=== PATIENT | female | born 1955 | race Caucasian/White ===

== ENCOUNTER 2017-08-03 17:09 | Inpatient (IN) | payer BC ==
[2017-08-03 17:51] LABS: Absolute Monocytes 0.5 K/uL (0.1-1.3); Absolute Neutrophil 24.6 K/uL (1.8-8.0); Basophils % 0.1 % (0-1.3); Eosinophils % 0.8 % (0-4.4); Hematocrit 40.4 % (36.0-45.0); Lymphocytes % 3.7 % (15.3-44.8); MCH 29.9 pg (27.0-35.0); MCV 89.9 fL (80-100); MPV 9.2 fL (7.6-11.3); Monocytes % 2.1 % (3.3-12.3)
[2017-08-03] MEDS ORDERED: MAGNE/ALUM HYDROXD 30 ML UCUP ONE (17:53)
[2017-08-03] MEDS ORDERED: ONDANSETRON 4 MG/2 ML VIAL ONE (17:53)
[2017-08-03] MEDS ORDERED: LIDOCAINE VISCOUS 2% SOLN 15 ML UDC ONE (17:54)
[2017-08-03 17:58] LABS: Protime INR 1.24
--- NOTE | 2017-08-03 18:02 | RAD REPORT ---
EXAM DESCRIPTION: US - Abdomen Exam Limited - 08/03/2017 5:46 pm CLINICAL HISTORY: Abdominal pain. COMPARISON: None. FINDINGS: The gallbladder wall is not thickened. A gallstone is not seen. The biliary tree is normal caliber. IMPRESSION: Unremarkable gallbladder ultrasound.
[2017-08-03] MEDS ORDERED: LEVALBUTEROL 1.25 MG/3 ML NEB ONE ×2 (18:05→20:36)
[2017-08-03] MEDS ORDERED: NA CHLORIDE 0.9% 500 ML ONE ×2 (18:05→18:23)
[2017-08-03 19:17] LABS: ALT/SGPT 18 U/L (12-78); AST/SGOT 18 U/L (15-37); Albumin 2.6 g/dL (3.4-5.0); Alkaline Phosphatase 141 U/L (45-117); BUN Blood Urea Nitrogen 44 mg/dL (7-18); Bicarbonate 21 mmol/L (21-32); Bilirubin Direct 0.3 mg/dL (0-0.2); Bilirubin Total 0.5 mg/dL (0.2-1.0); CKMB Creatine Kinase MB < 1.0 ng/mL (0.3-3.6); Creatine Phosphokinase 25 U/L (26-192); Glucose Level 100 mg/dL (74-106); Lipase 63 U/L (73-393); Potassium 3.1 mmol/L (3.5-5.1); Sodium Level 128 mmol/L (136-145)
[2017-08-03] MEDS ORDERED: MEPERIDINE HCL 25 MG/0.5 ML ONE (19:17)
--- NOTE | 2017-08-03 19:20 | RAD REPORT ---
EXAM DESCRIPTION: Damir Single View08/03/2017 6:26 pm CLINICAL HISTORY: Chest pain COMPARISON: none FINDINGS: Small to moderate loculated right pleural effusion is suspected with mild to moderate righ t lung opacities. The left lung probably is clear. The heart is normal size IMPRESSION: Small to moderate loculated right pleural effusion Right lung opacities probably represent pneumonia. This all should be followed until it is clear to help exclude an underlying mass
[2017-08-03] MEDS ORDERED: Levofloxacin 750mg IV 750 MG/150 ML BAG IV ONE (19:27)
--- NOTE | 2017-08-03 20:00 | EDPHYS ---
Physician Documentation [facility] Name: Leonila Cabrera Age: 62 yrs Sex: Female : 1955 Arrival Date: 08/03/2017 Time: 17:09 Bed 6 Private MD: ED Physician Perico Shah HPI: 08/03 17:19 This 62 yrs old Female presents to ER via Unassigned with complaints of Chest rn Pain. 17:19 The patient or guardian reports chest pain that is located primarily in the substernal rn area, anterior chest wall, left. Onset: 3 day(s) ago. The pain does not radiate. The chest pain is described as aching, dull. Modifying factors: The symptoms are alleviated by nothing. the symptoms are aggravated by nothing. Severity of pain: At its worst the pain was moderate in the emergency department the pain is unchanged. The patient has not experienced similar symptoms in the past. Reports began as right sided chest pain, now substernal and left sided, non-radiating, assoc with heartburn and decreased appetite, not worse or better with anything, no trauma, + cough without blood, no fever. . Historical: - Allergies: 17:33 PENICILLINS; aj - Home Meds: 17:33 Omeprazole Oral [Active]; aj - PMHx: 17:33 GERD; aj - PSHx: 17:33 None; aj - Immunization history:: Adult Immunizations up to date. - Social history:: Smoking status: Patient/guardian denies using tobacco. - Family history:: not pertinent. - Ebola Screening: : Patient negative for fever greater than or equal to 101.5 degrees Fahrenheit, and additional compatible Ebola Virus Disease symptoms Patient denies exposure to infectious person Patient denies travel to an Ebola-affected area in the 21 days before illness onset No symptoms or risks identified at this time. - Hospitalizations: : No recent hospitalization is reported. ROS: 17:19 Constitutional: Negative for fever, chills, and weight loss, Eyes: Negative for injury, rn pain, redness, and discharge, Cardiovascular: Negative for palpitations, and edema, Respiratory: Negative for shortness of breath, wheezing Abdomen/GI: Negative for abdominal pain, vomiting, diarrhea, and constipation, MS/Extremity: Negative for injury and deformity, Skin: Negative for injury, rash, and discoloration, Neuro: Negative for headache, weakness, numbness, tingling, and seizure. Exam: 17:19 Constitutional: This is a well developed, well nourished patient who is awake, alert, rn wheeled in with hand on chest, moaning Head/Face: Normocephalic, atraumatic. Eyes: Pupils equal round and reactive to light, extra-ocular motions intact. Lids and lashes normal. Conjunctiva and sclera are non-icteric and not injected. Cornea within normal limits. Periorbital areas with no swelling, redness, or edema. ENT: dry MM Neck: Trachea midline, no thyromegaly or masses palpated, and no cervical lymphadenopathy. Supple, full range of motion without nuchal rigidity, or vertebral point tenderness. No Meningismus. Chest/axilla: Normal chest wall appearance and motion. Nontender with no deformity. No lesions are appreciated. Cardiovascular: Regular rate and rhythm with a normal S1 and S2. No gallops, murmurs, or rubs. Normal PMI, no JVD. No pulse deficits. Respiratory: Lungs have equal breath sounds bilaterally, clear to auscultation and percussion. No rales, rhonchi or wheezes noted. No increased work of breathing, no retractions or nasal flaring. Abdomen/GI: Soft, non-tender, with normal bowel sounds. No distension or tympany. No guarding or rebound. No evidence of tenderness throughout. MS/ Extremity: Pulses equal, no cyanosis. Neurovascular intact. Full, normal range of motion. Equal circumference. Neuro: Awake and alert, GCS 15, oriented to person, place, time, and situation. Cranial nerves II-XII grossly intact. Motor strength 5/5 in all extremities. Sensory grossly intact. Vital Signs: 17:38 BP 128 / 85; Pulse 119; Resp 30; Temp 98.4; Pulse Ox 100% on R/A; Weight 72.57 kg; aj Height 5 ft. 4 in. (162.56 cm); 18:09 BP 97 / 68; Pulse 126; Resp 24; Pulse Ox 100% on Nebulizer Mask; aj 19:33 BP 106 / 73; Pulse 130; Resp 30; Pulse Ox 100% on 2 lpm NC; aj 20:58 BP 100 / 63; Pulse 127; Resp 27; Pulse Ox 100% on BiPAP; aj 21:16 BP 107 / 94; Pulse 125; Resp 29; Pulse Ox 100% on BiPAP; aj 17:38 Body Mass Index 27.46 (72.57 kg, 162.56 cm) aj MDM: 17:11 Patient medically screened. rn 19:56 Differential diagnosis: acute myocardial infarction, acute pericarditis, chest wall rn pain, cholecystitis, Cholelithiasis costochondritis, esophagitis, gastritis, gastroesophageal reflux disease (GERD), pericarditis, pleurisy, pneumonia, pneumothorax. Data reviewed: vital signs, nurses notes, lab test result(s), EKG, radiologic studies, plain films, and as a result, I will admit patient. Counseling: I had a detailed discussion with the patient and/or guardian regarding: the historical points, exam findings, and any diagnostic results supporting the discharge/admit diagnosis, lab results, radiology results, the need for further work-up and treatment in the hospital. Response to treatment: the patient's symptoms have mildly improved after treatment, and as a result, I will admit patient. Admission orders: after a detailed discussion of the patient's condition and case, the admit orders are written by me. ED course: Pt with pneumonia, improving but still tachypneic, placed on bipap for support, admitted to Dr. parks At 8. 08/03 17:16 Order name: Basic Metabolic Panel; Complete Time: 19:21 rn 08/03 17:16 Order name: CBC with Diff rn 08/03 17:16 Order name: Ckmb; Complete Time: 19: rn 08/03 17:16 Order name: CPK; Complete Time: : rn 08/03 17:16 Order name: LFT's; Complete Time: 19:21 rn 08/03 17:16 Order name: PT-INR; Complete Time: 18:07 rn 08/03 17:16 Order name: Ptt, Activated; Complete Time: 18: rn 08/03 17:16 Order name: Troponin (emerg Dept Use Only); Complete Time: 18:21 rn 08/03 17:16 Order name: Lipase; Complete Time: 19:21 rn 08/03 17:56 Order name: Manual Differential EDMS 08/03 19:02 Order name: Urine Dipstick--Ancillary (enter results) eb 08/03 20:42 Order name: CBC with Automated Diff EDMS 08/03 20:42 Order name: CBC with Automated Diff EDMS 08/03 20:42 Order name: Comprehensive Metabolic Panel EDMS 08/03 17:16 Order name: XRAY Chest (1 view); Complete Time: 19:21 rn 08/03 17:16 Order name: US Abdomen Limited; Complete Time: 18:07 rn 08/03 19:54 Order name: BIPAP rn 08/03 20:42 Order name: Comprehensive Metabolic Panel EDMS 08/03 20:42 Order name: Lipid Profile EDMS 08/03 20:42 Order name: Lipid Profile EDMS 08/03 20:42 Order name: Magnesium EDMS 08/03 20:42 Order name: Magnesium EDMS 08/03 20:42 Order name: Phosphorus EDMS 08/03 20:42 Order name: Phosphorus EDMS 08/03 17:16 Order name: EKG; Complete Time: 17:16 rn 08/03 17:16 Order name: Cardiac monitoring; Complete Time: 17:56 rn 08/03 17:16 Order name: EKG - Nurse/Tech; Complete Time: 17:56 rn 08/03 17:16 Order name: IV Saline Lock; Complete Time: 17:57 rn 08/03 17:16 Order name: Labs collected and sent; Complete Time: 17:57 rn 08/03 17:16 Order name: O2 Per Protocol; Complete Time: 17:57 rn 08/03 17:16 Order name: O2 Sat Monitoring; Complete Time: 17:57 rn 08/03 20:42 Order name: Heart Healthy EDMS Administered Medications: 17:56 Drug: Zofran 4 mg Route: IVP; Site: right antecubital; aj 17:56 Drug: GI Cocktail without - (Maalox Suspension 30 ml, Lidocaine Liquid 2 % 15 aj ml) Route: PO; 18:09 Drug: NS 0.9% 500 ml Route: IV; Rate: bolus; Site: right antecubital; aj 18:09 Drug: Xopenex 1.25 mg Route: Inhalation; aj 19:22 Drug: Demerol 25 mg Route: IVP; Site: right antecubital; aj 19:33 Drug: LevaQUIN 750 mg Volume: 150 ml; Route: IVPB; Infused Over: 90 mins; Site: right aj antecubital; 20:40 Drug: morphine 4 mg Route: IVP; Site: right antecubital; aj 20:41 Drug: Xopenex 1.25 mg Route: Inhalation; aj Disposition: 19:59 Critical Care:. rn Disposition: 08/03/17 19:59 Hospitalization ordered by Henry Parks for Inpatient Admission. Preliminary diagnosis are Right sided pneumonia, Pleural effusion, not elsewhere classified, Pleurisy. - Bed requested for Telemetry/MedSurg (Inpatient). - Status is Inpatient Admission. ak1 - Condition is Stable. - Problem is new. - Symptoms have improved. UTI on Admission? No Critical care time excluding procedures: 19:59 Critical care time: Bedside Care: 25 minutes, Family Intervention: 5 minutes. Total rn time: 30 minutes Signatures: Dispatcher [employer] EDBrittany Marion, RN RN Perico Gorman MD MD rn Krenek, Amber, RN RN ak1 Botello, Elizabeth eb Corrections: (The following items were deleted from the chart) 21:02 19:59 Hospitalization Ordered by Henry Parks MD for Inpatient Admission. Preliminary eb diagnosis is Right sided pneumonia; Pleural effusion, not elsewhere classified; Pleurisy. Bed requested for Telemetry/MedSurg (Inpatient). Status is Inpatient Admission. Condition is Stable. Problem is new. Symptoms have improved. UTI on Admission? No. rn 22:27 21:02 08/03/2017 19:59 Hospitalization Ordered by Henry Parks MD for Inpatient ak1 Admission. Preliminary diagnosis is Right sided pneumonia; Pleural effusion, not elsewhere classified; Pleurisy. Bed requested for Telemetry/MedSurg (Inpatient). Status is Inpatient Admission. Condition is Stable. Problem is new. Symptoms have improved. UTI on Admission? No. eb
--- NOTE | 2017-08-03 20:00 | ER ---
Nurse's Notes [facility] Name: Leonila Cabrera Age: 62 yrs Sex: Female : 1955 Arrival Date: 08/03/2017 Time: 17:09 Bed 6 Private MD: Diagnosis: Right sided pneumonia;Pleural effusion, not elsewhere classified;Pleurisy Presentation: 08/03 17:28 Presenting complaint: Patient states: Chest pain for 4 days. Seen by PCP in [facility], then drove to this ER for evaluation. Transition of care: patient was not received from another setting of care. Onset of symptoms was July 30, 2017. Risk Assessment: Do you want to hurt yourself or someone else? Patient reports no desire to harm self or others. Care prior to arrival: None. 17:28 Method Of Arrival: Ambulatory 17:28 Acuity: MAINE 3 17:28 Initial Sepsis Screen: Does the patient meet any 2 criteria? RR > 20 per min. HR > 90 aj bpm. Yes Does the patient have a suspected source of infection?. Triage Assessment: 17:33 General: Appears in no apparent distress. uncomfortable, Behavior is calm, cooperative, aj appropriate for age. Pain: Complains of pain in chest. Neuro: Level of Consciousness is awake, alert, obeys commands, Oriented to person, place, time, situation. Cardiovascular: Reports chest pain, Capillary refill < 3 seconds in bilateral fingers Patient's skin is warm and dry. Respiratory: Airway is patent Respiratory effort is even, unlabored, Respiratory pattern is regular, symmetrical. Derm: Skin is intact, is healthy with good turgor, Skin is pink, warm \T\ dry. normal. Historical: - Allergies: 17:33 PENICILLINS; aj - Home Meds: 17:33 Omeprazole Oral [Active]; aj - PMHx: 17:33 GERD; aj - PSHx: 17:33 None; aj - Immunization history:: Adult Immunizations up to date. - Social history:: Smoking status: Patient/guardian denies using tobacco. - Family history:: not pertinent. - Ebola Screening: : Patient negative for fever greater than or equal to 101.5 degrees Fahrenheit, and additional compatible Ebola Virus Disease symptoms Patient denies exposure to infectious person Patient denies travel to an Ebola-affected area in the 21 days before illness onset No symptoms or risks identified at this time. - Hospitalizations: : No recent hospitalization is reported. Screenin:58 Abuse screen: Denies threats or abuse. Denies injuries from another. Nutritional aj screening: No deficits noted. Tuberculosis screening: No symptoms or risk factors identified. Fall Risk None identified. Assessment: 18:09 Reassessment: Patient appears in no apparent distress at this time. No changes from aj previously documented assessment. Patient and/or family updated on plan of care and expected duration. Pain level reassessed. Patient is alert, oriented x 3, equal unlabored respirations, skin warm/dry/pink. is at bedside. Patient is awake and alert. Using pink hand held fan to cool herself. Reports odd sensation in back of throat. Patient educated about viscous lidocaine and it's symptoms. Respirations are even and unlabored. Patient's voice is clear and cough is strong. Vital Signs: 17:38 BP 128 / 85; Pulse 119; Resp 30; Temp 98.4; Pulse Ox 100% on R/A; Weight 72.57 kg; aj Height 5 ft. 4 in. (162.56 cm); 18:09 BP 97 / 68; Pulse 126; Resp 24; Pulse Ox 100% on Nebulizer Mask; aj 19:33 BP 106 / 73; Pulse 130; Resp 30; Pulse Ox 100% on 2 lpm NC; aj 20:58 BP 100 / 63; Pulse 127; Resp 27; Pulse Ox 100% on BiPAP; aj 21:16 BP 107 / 94; Pulse 125; Resp 29; Pulse Ox 100% on BiPAP; aj 17:38 Body Mass Index 27.46 (72.57 kg, 162.56 cm) ED Course: 17:09 Patient arrived in ED. as 17:11 Perico Shah MD is Attending Physician. rn 17:28 Brittany Mccann, ROMY is Primary Nurse. aj 17:29 EKG done, by mine technician. reviewed by Perico Shah MD. at1 17:32 Triage completed. aj 17:38 Arm band placed on left wrist. Patient placed in an exam room, on a stretcher, on aj classroom monitor, on pulse oximetry. 17:40 X-ray completed. Portable x-ray completed in exam room. Patient tolerated procedure kc2 well. 17:41 XRAY Chest (1 view) In Process Unspecified. EDMS 17:46 US Abdomen Limited In Process Unspecified. EDMS 18:00 Inserted saline lock: 18 gauge in right antecubital area, using aseptic technique. aj Blood collected. 18:40 Urine collected: clean catch specimen, clear, ijeoma colored. jp3 19:58 Henry Otoole MD is Hospitalizing Provider. rn 20:58 Patient has correct armband on for positive identification. nuclear monitoring technician on. Pulse aj ox on. NIBP on. Administered Medications: 17:56 Drug: Zofran 4 mg Route: IVP; Site: right antecubital; aj 17:56 Drug: GI Cocktail without - (Maalox Suspension 30 ml, Lidocaine Liquid 2 % 15 aj ml) Route: PO; 18:09 Drug: NS 0.9% 500 ml Route: IV; Rate: bolus; Site: right antecubital; aj 18:09 Drug: Xopenex 1.25 mg Route: Inhalation; aj 19:22 Drug: Demerol 25 mg Route: IVP; Site: right antecubital; aj 19:33 Drug: LevaQUIN 750 mg Volume: 150 ml; Route: IVPB; Infused Over: 90 mins; Site: right aj antecubital; 20:40 Drug: morphine 4 mg Route: IVP; Site: right antecubital; aj 20:41 Drug: Xopenex 1.25 mg Route: Inhalation; aj Outcome: 19:59 Decision to Hospitalize by Provider. rn 22:27 Patient left the ED. ak1 Signatures: Dispatcher [employer] EDMS Brittany Mccann, Giselle Flood RN, Roman, MD MD rn gonzales, Amanda, risk management professional EKG Tat1 Ijeoma Matta, ROMY RN ak1 Marita Sierra2 Grant Velasquez jp3 Corrections: (The following items were deleted from the chart) 19:34 17:28 Initial Sepsis Screen: Does the patient meet any 2 criteria? No. Patient's aj initial sepsis screen is negative. Does the patient have a suspected source of infection? No. Patient's initial sepsis screen is negative. aj 21:15 18:00 Inserted saline lock: 20 gauge in right antecubital area, using aseptic aj technique. Blood collected. aj
[2017-08-03] MEDS ORDERED: MORPHINE 4 MG/ML SYR ONE (20:37)
[2017-08-03] MEDS ORDERED: ACETAMINOPHEN 500 MG TAB PO PRN (20:38)
[2017-08-03] MEDS ORDERED: ALBUTEROL 2.5 MG/3 ML NEB SOL NEB SCH (21:00)
[2017-08-03] MEDS ORDERED: NA CHLORIDE 0.9% 1,000 ML IV SCH (21:00)
[2017-08-03 21:04] LABS: Blood Morphology Comment NOT SEEN (NOT SEEN); Platelet Estimate ADEQ
[2017-08-03 21:39] LABS: Urine Blood 2+ (NEG); Urine Glucose TRACE (NEG); Urine Protein 2+ (NEG); Urine Specific Gravity 1.015 (1.005-1.030); Urine pH 5.5 (5.0-7.0)
[2017-08-04] MEDS ORDERED: PIPER/TAZO/NS 3.375gm 3.375 GM/100 ML BAG IVPB SCH
[2017-08-04] MEDS ORDERED: PIPERACIL/TAZO 3.375 GM VIAL IV ONE (00:39)
[2017-08-04] MEDS: IPRATROPIUM BROM 0.5MG/2.5ML NEB SCH ×3 (01:01→14:00)
[2017-08-04] MEDS ORDERED: CEFTRIAXONE/SWI 1gm 1 GM/10 ML SYR ONE (01:56)
[2017-08-04] MEDS ORDERED: HYDROCORTISONE SUC 100 MG INJ IV ONE (01:58)
[2017-08-04] MEDS ORDERED: CEFTRIAXONE 1 GM/NS 50 ML 1 GM/50 ML BAG IV SCH (02:00)
[2017-08-04] MEDS ORDERED: AZITHROMYCIN 500 MG/250 ML BAG ONE (02:15)
[2017-08-04] MEDS ORDERED: AZITHROMYCIN IV 500 MG in NA CHLORIDE 0.9% 250 ML IVPB SCH (02:30)
[2017-08-04] MEDS ORDERED: PANTOPRAZOLE 40MG TABLET PO ONE (02:59)
[2017-08-04] MEDS: ONDANSETRON 4 MG/2 ML VIAL IV PRN ×2 (03:12→09:55)
[2017-08-04 05:42] LABS: Absolute Lymphocytes (CBC) 0.7 K/uL (0.7-4.9); Absolute Monocytes 0.6 K/uL (0.1-1.3); Absolute Neutrophil 24.3 K/uL (1.8-8.0); Basophils % 0.2 % (0-1.3); Hematocrit 36.6 % (36.0-45.0); Lymphocytes % 2.9 % (15.3-44.8); MCH 29.9 pg (27.0-35.0); MCV 90.3 fL (80-100); Monocytes % 2.4 % (3.3-12.3); RBC Red Blood Cell Count 4.05 M/uL (3.86-4.86)
[2017-08-04] MEDS ORDERED: MORPHINE 2 MG/ML SYR IV ONE (05:48)
[2017-08-04] MEDS ORDERED: MORPHINE 2 MG/ML SYR IV PRN (05:48)
[2017-08-04] MEDS ORDERED: NA CHLORIDE 0.9% 1,000 ML IV SCH ×2 (06:00→13:00)
[2017-08-04 06:42] LABS: Albumin 2.3 g/dL (3.4-5.0); Bilirubin Total 0.5 mg/dL (0.2-1.0); Magnesium 1.9 mg/dL (1.8-2.4); Phosphorus 3.8 mg/dL (2.5-4.9); Potassium 3.5 mmol/L (3.5-5.1)
--- NOTE | 2017-08-04 07:04 | P.HP ---
Certification for Inpatient Patient admitted to: Inpatient With expected LOS: >2 Midnights Patient will require the following post-hospital care: None Practitioner: I am a practitioner with admitting privileges, knowledge of patient current condition, hospital course, and medical plan of care. Services: Services provided to patient in accordance with Admission requirements found in Title 42 Section 412.3 of the Code of Federal Regulations Patient History Date of Service: 08/03/17 Reason for admission: Pneumonia History of Present Illness: Patient is a 62-year-old female came into the hospital with shortness of breath. Patient has been having exertional dyspnea which has progressed to shortness of breath at rest. She came into the hospital for further evaluation. Patient has been having fever, shakes, and chills. She has had increased amount of secretions. Patient was seen in the emergency room and her workup revealed that she had a pneumonia. Patient has a CT scan of her chest which also showed an effusion with questionable loculations. At this time will go ahead and admit patient to the hospital and start IV antibiotic therapy. Patient has been having some pain in her sternal region which will continue to monitor at this time. This is most likely related to the pneumonia. Will get a dedicated CT scan without contrast as patient renal function is elevated. Gentle hydration will also be started. Allergies Penicillins Allergy (Unknown, Verified 08/04/17 01:00) Unknown Home Medications: Esomeprazole Mag Trihydrate [Nexium] 40 mg PO DAILY 08/03/17 - Past Medical/Surgical History Has patient received pneumonia vaccine in the past: No Diabetic: No -: GERD Past Surgical History: Patient denies surgical history - Family History Father Family History: Reviewed- Non-Contributory - Social History Smoking Status: Former smoker Alcohol use: Yes CD- Drugs: No Caffeine use: Yes Place of Residence: Home Review of Systems 10-point ROS is otherwise unremarkable Physical Examination - Vital Signs Temperature: 97 F Blood Pressure: 103/71 Pulse: 111 Respirations: 24 Pulse Ox (%): 97 - Physical Exam General: Alert, In no apparent distress, Oriented x3 HEENT: Atraumatic, PERRLA, Mucous membr. moist/pink, EOMI, Sclerae nonicteric Neck: Supple, 2+ carotid pulse no bruit, No LAD, Without JVD or thyroid abnormality Respiratory: Diminished, Crackles/rales, Expiratory wheezes Cardiovascular: Regular rate/rhythm, Normal S1 S2, No murmurs Gastrointestinal: Normal bowel sounds, Soft and benign, Non-distended, No tenderness Musculoskeletal: No clubbing, No swelling, No tenderness Integumentary: No rashes Neurological: Normal gait, Normal speech, Normal strength at 5/5 x4 extr, Normal tone, Sensation intact, Cranial nerves 3-12 intact, Normal affect Lymphatics: No axilla or inguinal lymphadenopathy - Studies Laboratory Data (last 24 hrs) 08/03/17 17:23: PT 14.7 H, INR 1.24, APTT 27.6 08/03/17 17:23: WBC 26.4 H*, Hgb 13.5, Hct 40.4, Plt Count 335 08/03/17 17:23: Sodium 128 L, Potassium 3.1 L, BUN 44 H, Creatinine 3.60 H, Glucose 100, Total Bilirubin 0.5, AST 18, ALT 18, Alkaline Phosphatase 141 H, Lipase 63 L Assessment & Plan - Problems (Diagnosis) (1) Parapneumonic effusion Current Visit: Yes Status: Acute (2) Pneumonia Current Visit: Yes Status: Acute (3) Shortness of breath Current Visit: Yes Status: Acute - Plan 1. Continue with IV antibiotics 2. Sputum and blood culture 3. Repeat chest x-ray 4. Will proceed with CT scan of the chest if pneumonia 5. Pulmonary consultation 6. Continue with nebs as needed 7. O2 per protocol 8. Continue with gentle hydration 9. Repeat labs including CBC and renal function in a.m. 10. GI and DVT prophylaxis - Advance Directives Does patient have a Living Will: No Does patient have a Durable POA for Healthcare: No - Code Status/Comfort Care Code Status Assessed: Yes Code Status: Full Code Critical Care: No Time Spent Managing PTS Care (In Minutes): 50
[2017-08-04] MEDS ORDERED: MORPHINE 4 MG/ML SYR IV PRN (07:12)
[2017-08-04] MEDS ORDERED: Meropenem 500 MG in NA CHLORIDE 0.9% 100 ML IV SCH (09:00)
[2017-08-04] MEDS ORDERED: Meropenem 1,000 MG in NA CHLORIDE 0.9% 100 ML IV SCH (09:00)
[2017-08-04] MEDS ORDERED: POTASSIUM CL SA 10 MEQ TAB PO ONE (09:00)
[2017-08-04] MEDS ORDERED: ENOXAPARIN 30 MG/0.3 ML SQ SCH (09:00)
--- NOTE | 2017-08-04 10:09 | RAD REPORT ---
EXAM DESCRIPTION: CT - Thorax Wo Con - 08/04/2017 9:15 am CLINICAL HISTORY: Pleural effusion, pneumonia, abnormal chest film COMPARISON: Chest exam August 03 TECHNIQUE: Axial 5 mm thick images of the chest were obtained without IV contrast. All CT scans are performed using dose optimization technique as appropriate and may include automated exposure control or mA/KV adjustment according to patient size. FINDINGS: Interstitial markings are prominent in the left lung field accentuated by respiratory ayo on artifact. No left-sided mass or consolidation. Small left-sided pleural effusion is present. There is no pneumothorax. Large area of consolidation is present occupying most of the right lower lobe. N umerous air bronchograms are present. Large pneumonia is favored over atelectasis or mass. There is a small component of atelectasis present. Interstitial markings in the right upper lobe and right midd le lobe are accentuated by the same motion process seen on the left. No pneumothorax. Moderate-sized loculated pleural effusion is present along the anterior and lateral aspect of the [place] from base to the aortic arch level. No soft tissue mass component seen. There is a minimal compone nt of free pleural fluid in the posterior gutter on the right. All Minimal pericardial thickening or effusion seen. Heart size is normal. Small nonspecific mediastinal lymph nodes are present probably reactive. No aortic or pulmonary artery dilatation. Vascular assessm ent is significantly limited in the absence contrast. No chest wall mass or abnormal axillary lymphadenopathy. IMPRESSION: Large consolidated pneumonia filling the majority of the right lower lobe. Moderate-size loculated pleural effusion in the anterior and lateral aspect of the right hemithorax f rom based 2 aortic arch level. Minimal left pleural effusion.
--- NOTE | 2017-08-04 10:41 | EKG ---
Test Date: 2017-08-03 Test Time: 17:21:31 Logistics Analytics Manager: JI MEASUREMENT RESULTS: Intervals: Rate: 117 UT: 172 QRSD: 88 QT: 300 QTc: 418 [place]: P: 24 UT: 172 QRS: 33 T: 22 INTERPRETIVE STATEMENTS: Sinus tachycardia Otherwise normal ECG No previous ECG available for comparison Electronically Signed On 08-04-17 10:41:03 CDT by Mariano Gauthier
[2017-08-04] MEDS ORDERED: LORazepam 2 MG/ML VIAL IV ONE ×2 (10:49→13:25)
[2017-08-04] MEDS ORDERED: Pharmacy Consult 1 EA XX PRN (12:36)
--- NOTE | 2017-08-04 12:43 | P.CNS ---
Date of Consult: 08/04/17 Reason for Consult: Pneumonia with loculated pleural effusion Chief Complaint: Pneumonia History of Present Illness: Patient is 62 years of age admitted with the tongue chest pain that started on Wednesday became progressively worse described as pleuritic in nature she has fever productive cough was found to have right-sided pneumonia with loculated pleural effusion no prior medical history takes nonsteroidals [id number] no cardiac history he has never smoked Allergies Penicillins Allergy (Unknown, Verified 08/04/17 01:00) Unknown Home Medications: Esomeprazole Mag Trihydrate [Nexium] 40 mg PO DAILY 08/03/17 - Past Medical/Surgical History Diabetic: No -: GERD - Family History Father Family History: Reviewed- Non-Contributory - Social History Alcohol use: Yes CD- Drugs: No Caffeine use: Yes Place of Residence: Home Review of Systems General: Weakness Respiratory: Cough, Shortness of Breath Cardiovascular: Chest Pain Gastrointestinal: Nausea, Abdominal Pain Physical Examination Temp Pulse Resp BP Pulse Ox 97.7 F 107 H 20 97/62 100 08/04/17 08:00 08/04/17 08:00 08/04/17 08:00 08/04/17 08:00 08/04/17 08:00 General: Alert, Moderate distress HEENT: Atraumatic Neck: Supple Respiratory: Crackles/rales (Crackles on the right side diminished air entry) Cardiovascular: No edema, Regular rate/rhythm Gastrointestinal: Normal bowel sounds, Soft and benign Laboratory Data (last 24 hrs) 08/03/17 17:23: PT 14.7 H, INR 1.24, APTT 27.6 08/03/17 17:23: WBC 26.4 H*, Hgb 13.5, Hct 40.4, Plt Count 335 08/03/17 17:23: Sodium 128 L, Potassium 3.1 L, BUN 44 H, Creatinine 3.60 H, Glucose 100, Total Bilirubin 0.5, AST 18, ALT 18, Alkaline Phosphatase 141 H, Lipase 63 L - Problems (1) Parapneumonic effusion Current Visit: Yes Status: Acute Plan: Patient is 62 years of age admitted acute onset of chest pain elevated white count she has a pneumonia with right-sided loculated pleural effusion patient also has renal failure probably acute also order ultrasound of the kidneys CT scan report reviewed continue with IV fluids of surround some IV fluids renal ultrasound patient is on med [place] vancomycin recommend transfer to a tertiary care facility she will need a vats procedure with decortication monitoring of her renal function
[2017-08-04] MEDS ORDERED: VANCOMYCIN 1.25 GM in NA CHLORIDE 0.9% 250 ML IVPB SCH (13:00)
[2017-08-04] MEDS ORDERED: LEVALBUTEROL 0.63 MG/3 ML NEB NEB SCH (14:00)
[2017-08-04] MEDS ORDERED: METOPROLOL TARTRATE 5 MG/5 ML INJ IV STA ×3 (15:00→15:18)
--- NOTE | 2017-08-04 15:29 | ECHO ---
HEIGHT: 5 ft 4 in WEIGHT: 165 lb 8 oz DATE OF STUDY: 08/04/[address]: Henry Otoole MD 2-DIMENSIONAL: YES M.MODE: YES DOPPLER: YES COLOR FLOW: YES TDS: NO PORTABLE: NO DEFINITY: NO BUBBLE STUDY: NO DIAGNOSIS: PLUERAL EFFUSION CARDIAC HISTORY: CATHERIZATION: NO SURGERY: NO PROSTHETIC VALVE: NO PACEMAKER: NO MEASUREMENTS (cm) DIASTOLIC (NORMALS) SYSTOLIC (NORMALS) IVSd 0.8 (0.6-1.2) LA Diam 3.5 (1.9-4.0) LVEF 60-69% LVIDd 4.0 (3.5-5.7) LVIDs 3.0 (2.0-3.5) %FS 26% LVPWd 0.7 (0.6-1.2) Ao Diam 2.7 (2.0-3.7) 2 DIMENSIONAL ASSESSMENT: RIGHT ATRIUM: NORMAL LEFT ATRIUM: NORMAL RIGHT VENTRICLE: NORMAL LEFT VENTRICLE: NORMAL TRICUSPID VALVE: NORMAL MITRAL VALVE: NORMAL PULMONIC VALVE: NORMAL AORTIC VALVE: NORMAL PERICARDIAL EFFUSION: NONE AORTIC ROOT: NORMAL LEFT VENTRICULAR WALL MOTION: NORMAL DOPPLER/COLOR FLOW: MILD AORTIC REGURGITATION. MILD TRICUSPID REGURGITATION. NORMAL RIGHT VENTRICULAR SYSTOLIC PRESSURE. COMMENTS: NORMAL LEFT VENTRICULAR EJECTION FRACTION. NORMAL 2D ECHOCARDIOGRAM. MILD AORTIC REGURGITATION. MILD TRICUSPID REGURGITATION. TECHNOLOGIST: Gabino WHITAKER
[2017-08-04] MEDS ORDERED: ADENOSINE 6 MG/ 2ML VIAL IV ONE (16:00)
[2017-08-04] MEDS ORDERED: RSI MEDICATION KIT IV ONE (16:01)
[2017-08-04] MEDS ORDERED: AMIODARONE HCL 150 MG in D5W 100 ML IV STA ×2 (16:07→16:13)
[2017-08-04] MEDS ORDERED: HALOPERIDOL LACT 5 MG/ML INJ IV PRN (16:17)
[2017-08-04] MEDS ORDERED: MIDAZOLAM HCL 2 MG/2 ML INJ IV PRN (16:17)
[2017-08-04] MEDS ORDERED: LORazepam 2 MG/ML VIAL IV PRN (16:17)
[2017-08-04] MEDS ORDERED: FENTANYL CITR 100 MCG/2 ML IV PRN (16:17)
[2017-08-04] MEDS ORDERED: PROPOFOL 1,000 MG/100 ML VIAL IV PRN (16:17)
[2017-08-04] MEDS ORDERED: MIDAZOLAM HCL 2 MG/2 ML INJ ONE (16:24)
--- NOTE | 2017-08-04 16:31 | RAD REPORT ---
EXAM DESCRIPTION: [place] Single View08/04/2017 4:25 pm CLINICAL HISTORY: Chest pain COMPARISON: August 04 FINDINGS: An endotracheal tube has been inserted with its tip just above the ladarius. No significant change has occurred in the right lower lobe consolidation and loculated right pleural effusion. IMPRESSION: Endotracheal tube with its tip just above the ladarius
[2017-08-04] MEDS ORDERED: FENTANYL CITR 100 MCG/2 ML ONE (16:35)
[2017-08-04 16:55] LABS: Arterial Blood Carboxyhemoglob 0.7 % (0-1.5); Blood Gas Oxyhemoglobin 97.6 % (94-97); Blood O2 Saturation 99.3 % (92-98.5)
[2017-08-04] MEDS ORDERED: AMIODARONE HCL 450 MG in D5W 241 ML IV SCH (17:00)
[2017-08-04] MEDS ORDERED: NOREPINEPHRINE 4 MG in D5W 250 ML IV PRN (17:00)
--- NOTE | 2017-08-04 17:17 | RAD REPORT ---
EXAM DESCRIPTION: RAD - Chest Single View - 08/04/2017 5:10 pm CLINICAL HISTORY: Device placement central venous line placement COMPARISON: August 04 2017 chest x-ray FINDINGS: Since a film earlier on the same date a central venous line has been inserted with its tip in the superior vena cava. A pneumothorax is not seen. No other change is noted IMPRESSION: A central venous line has its tip in distal superior vena cava. A pneumothorax is not p resent.
[2017-08-04 17:22] LABS: Absolute Lymphocytes (CBC) 0.6 K/uL (0.7-4.9); Absolute Monocytes 0.8 K/uL (0.1-1.3); Absolute Neutrophil 20.7 K/uL (1.8-8.0); Basophils % 0.1 % (0-1.3); Eosinophils % 1.2 % (0-4.4); Hematocrit 35.2 % (36.0-45.0); Lymphocytes % 2.8 % (15.3-44.8); MCH 29.5 pg (27.0-35.0); MCV 89.9 fL (80-100); MPV 8.7 fL (7.6-11.3); Monocytes % 3.7 % (3.3-12.3); RBC Red Blood Cell Count 3.92 M/uL (3.86-4.86)
[2017-08-04 17:43] LABS: Bilirubin Total 0.5 mg/dL (0.2-1.0); Potassium 3.5 mmol/L (3.5-5.1); Protein, Total 6.7 g/dL (6.4-8.2)
[2017-08-04 17:51] LABS: Blood Morphology Comment NOT SEEN (NOT SEEN); Platelet Estimate ADEQ
--- NOTE | 2017-08-04 19:17 | CON ---
History Of Present Illness: Ms. Cabrera came to the hospital with pneumonia and has gone into AFib. I am asked to see her at the same time she went into atrial fibrillation. Heart rate went up into t he 180s, blood pressure fell and she became confused, disoriented. The patient is not able to give a history right now. She has been treated with azithromycin and Rocephin and Merrem and vancomycin fo r her pneumonia, but seems to have gotten worse. Nonetheless, we do not have any history of atrial f ib or heart procedures before. The patient ate about 3 hours ago, so she is not considered n.p.o. at this time. Physical Examination: General: She is awake. She is very confused, a little bit combative. Vital signs: Her O2 sats 97%. A blood gas could be obtained. The patient is combative. Skin: She has a blue appearance to her skin. I do not think she is perfusing very well. Blood pres sures have been low. When she was in sinus rhythm was 112/89. Most recent blood pressure is in the 90s. I think, the patient is in a lot of hemodynamic and respiratory distress at the present time. She ne eds to be intubated and cardioverted quickly. We do not have informed consent for that. In fact, we have words that the patient did not want to be intubated no matter what. We will try to get a hold of her family. She is clearly not able to make medical decisions now she is just too confused. CLARY/ABE Voice ID: [id number] Report ID: [id number]
--- NOTE | 2017-08-04 20:23 | OP ---
Surgeon: Mariano Gauthier MD Procedure: Direct current cardioversion. Indication: Atrial fib, hypotension, and shock. Procedure In Detail: The patient had been intubated, so her airway is protected. She had been sedat ed with etomidate, propofol, and was paralyzed with succinylcholine. Anterior-posterior paddles were applied to her chest. A single shock, 200 joules synchronized to the QRS complex, resulted in sinus rhythm. She will be given an amiodarone bolus and when we can get a central or PICC line, then we w ill give her an amiodarone drip. Ultimately, the plan is to transfer her to a tertiary level care [facility] where a thoracic surgeon could be involved and help with treating this very large right-sided lo culated pleural effusion and very large pneumonia along with compromise of her respiratory and cardio vascular system requiring intubation and cardioversion. CLARY/ABE Voice ID: [id number] Report ID: [id number]
[2017-08-04] MEDS ORDERED: CEFTRIAXONE/SWI 1gm 1 GM/10 ML SYR IV SCH (21:00)
[2017-08-04] MEDS ORDERED: FAMOTIDINE 20 MG/2 ML VIAL IV SCH (21:00)
--- NOTE | 2017-08-04 21:08 | CON ---
Date of Consultation: 08/04/2017 Please note, this is a stat consultation and procedure note. Reason For Consultation: The patient needs a stat central line. History Of Present Illness: The patient is a 62-year-old female, who came with shortness of breath, was diagnosed with pneumonia, and was on the floor; however, she went into AFib with rapid ventricula r response, was transferred to the ICU, intubated, and has been somewhat stabilized, and she needs to be on amiodarone for her AFib, and she needs a central IV access. Therefore, I was consulted. She is intubated and unable to give any review of system at this time. Past Medical History: GERD. Past Surgical History: Denies. Allergies: PENICILLIN. Social History: Used to smoke, does not anymore. Occasionally drinks. Family History: Noncontributory. Physical Examination: General: She is hypotensive, but she is not tachycardic in sinus rhythm currently, afebrile. She is intubated. Head and Neck: No masses. Chest: Diminished breath sounds on the right side. Heart: S1, S2. Abdomen: Soft. Extremities: Neurovascularly intact. Neuro: Nonfocal. At this point, she is sedated, however. Assessment: Atrial fibrillation with rapid ventricular response. The patient needed dalton gent IV access. Plan: We will place a central line. Family understands risks, benefits, and alternatives and agrees to procedure. Procedure Note: The patient was prepped and draped in usual sterile fashion. Lidocaine 1% was infil trated locally. An 18-gauge needle was used to access the right subclavian vein. Guidewire was pass ed and then tract dilated. Triple-lumen catheter placed to 17 cm, secured with 3-0 silk, flushed wit h heparin, and packed with heparin with good blood flow. Sterile dressing applied after the 3-0 silk was used to secure the tube to the chest wall. The patient tolerated the procedure in stable condit ion. Chest x-ray has been ordered. /MODL Voice ID: [id number] Report ID: [id number]
[2017-08-05] MEDS ORDERED: PANTOPRAZOLE 40MG TABLET PO SCH (06:30)
--- NOTE | 2017-08-05 06:38 | EKG ---
Test Date: 2017-08-04 Test Time: 15:08:05 Quotation Clerk: TC/V MEASUREMENT RESULTS: Intervals: Rate: 192 HI: QRSD: 88 QT: 240 QTc: 429 [place]: P: HI: QRS: 31 T: -50 INTERPRETIVE STATEMENTS: Atrial fibrillation with rapid ventricular response Nonspecific ST and T wave abnormality, probably digitalis effect Abnormal ECG Compared to ECG 08/03/2017 17:21:31 ST (T wave) deviation now present Sinus tachycardia no longer present Electronically Signed On 08-05-17 06:37:31 CDT by Mariano Gauthier
--- NOTE | 2017-08-05 10:50 | EKG ---
Test Date: 2017-08-04 Test Time: 18:13:26 Pluck Separator: DREW MEASUREMENT RESULTS: Intervals: Rate: 94 FL: 162 QRSD: 96 QT: 374 QTc: 467 [place]: P: 0 FL: 162 QRS: 54 T: 42 INTERPRETIVE STATEMENTS: Normal sinus rhythm Normal ECG Compared to ECG 08/04/2017 15:08:05 Atrial fibrillation no longer present ST (T wave) deviation no longer present Electronically Signed On 08-05-17 10:49:34 CDT by Forrest Uriostegui
--- NOTE | 2017-08-05 13:56 | P.SSS ---
Patient History Date of Service: 08/05/17 Reason for admission: Pneumonia History of Present Illness: Patient is a 62-year-old female came into the hospital with shortness of breath. Patient has been having exertional dyspnea which has progressed to shortness of breath at rest. She came into the hospital for further evaluation. Patient has been having fever, shakes, and chills. She has had increased amount of secretions. Patient was seen in the emergency room and her workup revealed that she had a pneumonia. Patient has a CT scan of her chest which also showed an effusion with questionable loculations. At this time will go ahead and admit patient to the hospital and start IV antibiotic therapy. Patient has been having some pain in her sternal region which will continue to monitor at this time. This is most likely related to the pneumonia. Will get a dedicated CT scan without contrast as patient renal function is elevated. Gentle hydration will also be started. Allergies Penicillins Allergy (Unknown, Verified 08/04/17 01:00) Unknown Home Medications: Esomeprazole Mag Trihydrate [Nexium] 40 mg PO DAILY 08/03/17 - Past Medical/Surgical History Has patient received pneumonia vaccine in the past: No Diabetic: No -: GERD - Social History Smoking Status: Former smoker Alcohol use: Yes CD- Drugs: No Caffeine use: Yes Place of Residence: Home Review of Systems General: As per HPI Physical Examination - Vital Signs Temperature: 96.6 F Blood Pressure: 81/51 Pulse: 94 Respirations: 18 Pulse Ox (%): 92 - Physical Exam General: Acute distress, Other (Intubated and sedated) HEENT: Atraumatic Neck: Supple Respiratory: Diminished (on the right side), Crackles/rales, Rhonchi/gurgles Cardiovascular: Normal S1 S2, Irregular heart rate/rhythm Gastrointestinal: Normal bowel sounds, Hypoactive, Soft and benign, Non- distended Musculoskeletal: No clubbing, Swelling Neurological: Abnormal strength - Diagnosis (Problem(s)) (1) Respiratory failure Status: Acute Plan: Respiratory Failure due to unstable Afib with RVR -Pt intubated and sedated at this time -Pulmonology consulted. Appreciate Reccs -Pt is accepted to [facility] -Transfer when bed is available -Vent protocol Qualifiers: Chronicity: acute Respiratory failure complication: unspecified whether with hypoxia or hypercapnia Qualified Code(s): J96.00 - Acute respiratory failure, unspecified whether with hypoxia or hypercapnia (2) Atrial fibrillation with RVR Status: Acute Plan: Afib with RVR -Lopressor X 2 given. With HR is still 160-180 -Pt cardioverted at bedside. Now with HR 100 and Afib. -Started on Anticoagulation and amiodrone ggt -Transfer to [facility] for further care (3) Parapneumonic effusion Onset Date: 08/04/17 Status: Acute Plan: Multiple Loculated PE on the right -Pt will need VATS with Dicortication -Accepted to [facility] with Dr Johnston -Tranfer when bed is avaible (4) Pneumonia Onset Date: 08/04/17 Status: Acute Plan: Right sided large Consolidation noted. -IV vanc and meropenum. Treatment Summary: After the admission. pt was doing well overall. However during rounds patient was confused and appeared anxious. Was tachycardic however saturating well at 97 % on 2LNC. Pulmonology was consutled who reccs tranfer to [facility] for VATS and dicortication of her Pleural Effusion. Pt was accepted to [facility] with Bed pending. However pt developed respiratory distress and afib with rvr with hypotension. pt was tranfered to ICU and was given Lopressor x 1 with no change in rate or rhythm. Cardiology was consulted and pt was intuvated for respiratory distress and shock. Pt was then cardioverted to rate of 100 to 110. Still in afib. Was started on Amiodorne ggt here. [facility] was notifed and pt was accepted at MICU with Dr Johnston consulted for VATS. Pt was then transferred to the [facility] under stable condition. - Disposition Condition: GOOD Patient Discharge Instructions: You are being Transfered to [facility] for VATS procedure Diet: Regular Activity: Ad tj
== END 2017-08-04 18:40 | disposition short-term general hospital (02) | DRG 208 ==
LOC: ER 17:09 → ERHOLD 20:40 → 4TH 21:39 → 3RD-ICU 08-04 15:33
PROVIDERS: ADMIT Hospitalist; ATTEND Family Medicine
PROC: 02HV33Z Insertion of Infusion Device into Superior Vena Cava, Percutaneous Approach (ICD-10-PCS; principal; 2017-08-04)
PROC: 5A1935Z Respiratory Ventilation, Less than 24 Consecutive Hours (ICD-10-PCS; 2017-08-04)
PROC: 0BH17EZ Insertion of Endotracheal Airway into Trachea, Via Natural or Artificial Opening (ICD-10-PCS; 2017-08-04)
PROC: 5A2204Z Restoration of Cardiac Rhythm, Single (ICD-10-PCS; 2017-08-04)
DX: J18.9 Pneumonia, unspecified organism (principal); J96.00 Acute respiratory failure, unspecified whether with hypoxia or hypercapnia; N17.9 Acute kidney failure, unspecified; J91.8 Pleural effusion in other conditions classified elsewhere; R57.9 Shock, unspecified; I48.91 Unspecified atrial fibrillation; K21.9 Gastro-esophageal reflux disease without esophagitis; Z88.0 Allergy status to penicillin; Z87.891 Personal history of nicotine dependence
CPT/HCPCS: 36415; 71045; 71250; 76705; 80048; 80053; 80061; 80076; 81003; 82550; 82553; 82805; 83605; 83690; 83735; 83880; 84100; 84484; 85025; 85610; 85730; 87040; 93005; 93306; 94002; 94640; 94660; 94760; 96374; 96375; 99285; J0153; J0282; J0456; J0696; J1650; J1720; J2175; J2250; J2270; J2405; J2543; J3010; J7030; J7060

== ENCOUNTER 2017-09-13 14:02 | Observation (INO) | payer BC ==
--- NOTE | 2017-09-13 16:12 | RAD REPORT ---
EXAM DESCRIPTION: RAD - Hand Right 3 View - 09/13/2017 3:22 pm CLINICAL HISTORY: Nontraumatic soft tissue swelling, pain COMPARISON: None. FINDINGS: No gross fracture deformity seen. On the lateral view punctate soft tissue calcification e vident along the dorsal margin of the carpal-metacarpal articulation. No correlate on the AP or obliq ue projection. Soft tissues are swollen over the dorsum of the hand. No foreign body seen. There is n o dislocation or periosteal reaction noted. IP joint degenerative change without spurring or erosive component. IMPRESSION: Dorsal soft tissue swelling without air or foreign body. Faint calcific density along the dorsum of the carpal -metacarpal articulation. This is probably dege nerative in etiology. Patient stated no trauma.
[2017-09-13] MEDS ORDERED: KETOROLAC 30 MG/ML INJ ONE (16:47)
[2017-09-13] MEDS ORDERED: FENTANYL CITR 100 MCG/2 ML ONE (16:47)
[2017-09-13] MEDS ORDERED: ONDANSETRON 4 MG/2 ML VIAL ONE (16:48)
[2017-09-13] MEDS ORDERED: NA CHLORIDE 0.9% 1,000 ML ONE (16:48)
[2017-09-13 17:25] LABS: Absolute Lymphocytes (CBC) 3.2 K/uL (0.7-4.9); Absolute Monocytes 0.8 K/uL (0.1-1.3); Absolute Neutrophil 8.4 K/uL (1.8-8.0); Basophils % 0.9 % (0-1.3); Eosinophils % 1.8 % (0-4.4); Hematocrit 39.7 % (36.0-45.0); Lymphocytes % 24.9 % (15.3-44.8); MCH 30.5 pg (27.0-35.0); MPV 8.9 fL (7.6-11.3); Monocytes % 6.4 % (3.3-12.3); RBC Red Blood Cell Count 4.31 M/uL (3.86-4.86)
[2017-09-13 17:42] LABS: Albumin 3.5 g/dL (3.4-5.0); Bilirubin Total 0.4 mg/dL (0.2-1.0); Potassium 3.9 mmol/L (3.5-5.1); Protein, Total 8.4 g/dL (6.4-8.2)
[2017-09-13 17:53] LABS: Urine Blood TRACE (NEG); Urine Glucose NEGATIVE (NEG); Urine Protein NEGATIVE (NEG); Urine Specific Gravity 1.015 (1.005-1.030)
--- NOTE | 2017-09-13 18:17 | ER ---
Nurse's Notes [facility] Name: Leonila Cabrera Age: 62 yrs Sex: Female : 1955 Arrival Date: 09/13/2017 Time: 14:[address] Private MD: Rm Sweet Diagnosis: Pain in right wrist;Pain in right hand;Cellulitis and acute lymphangitis of other parts of limb Presentation: 09/13 14:09 Presenting complaint: Patient states: i noticed my R hand started swelling for 3 days hj now and is hurting very bad today; denies fever and chills; denies trauma to the area;. Transition of care: patient was not received from another setting of care. Onset of symptoms was September 13, 2017. Risk Assessment: Do you want to hurt yourself or someone else? Patient reports no desire to harm self or others. Initial Sepsis Screen: Does the patient meet any 2 criteria? No. Patient's initial sepsis screen is negative. Does the patient have a suspected source of infection? No. Patient's initial sepsis screen is negative. Care prior to arrival: None. 14:09 Method Of Arrival: Ambulatory 14:09 Acuity: MAINE 3 hj Triage Assessment: 14:13 General: Appears in no apparent distress. uncomfortable, Behavior is calm, cooperative, hj appropriate for age. Pain: Complains of pain in right hand. Historical: - Allergies: 14:13 PENICILLINS; hj - Home Meds: 14:13 Eliquis oral oral [Active]; pantoprazole oral oral [Active]; Metoprolol Tartrate Oral hj [Active]; - PMHx: 14:13 GERD; hj - PSHx: 14:13 None; hj - Immunization history:: Adult Immunizations up to date. - Social history:: Smoking status: Patient uses tobacco products. - Ebola Screening: : Patient negative for fever greater than or equal to 101.5 degrees Fahrenheit, and additional compatible Ebola Virus Disease symptoms Patient denies exposure to infectious person Patient denies travel to an Ebola-affected area in the 21 days before illness onset. - Family history:: not pertinent. Screenin:13 Abuse screen: Denies threats or abuse. Denies injuries from another. Nutritional hj screening: No deficits noted. Tuberculosis screening: No symptoms or risk factors identified. Fall Risk None identified. Assessment: 16:50 Reassessment: Shirley RN at bedside attempting IV start, missed attempt, Annita RN sg Charge notified to attempt IV start. 19:00 Reassessment: RECD REPORT FROM PRINCE STANTON. PT CURRENTLY IN MRI. 62YO WF P/W R HAND PAIN, TO bp BE ADMITTED AFTER RAD RESULTS. 19:20 Reassessment: PT RETURNED FROM RADIOLOGY, ADMIT IN PROCESS. bp 19:57 Reassessment: ADMIT ON HOLD PER PT REQUEST, WISHING TO SPEAK WITH MD. bp 21:17 Reassessment: PT EDUCATED ON REASON FOR ADMIT. PT TONJA WITH PCT. bp Vital Signs: 14:14 BP 120 / 79; Pulse 65; Resp 18; Temp 97.5(O); Pulse Ox 97% on R/A; Weight 68.49 kg; hj Height 5 ft. 4 in. (162.56 cm); Pain 10/10; 19:40 BP 104 / 61; Pulse 72; Resp 16; Pulse Ox 100% ; bp 20:18 BP 108 / 73; Pulse 64; Resp 16; Pulse Ox 95% on R/A; mt 20:34 BP 117 / 65; Pulse 66; Resp 18; Pulse Ox 96% on R/A; tl2 21:15 BP 107 / 76; Pulse 67; Resp 14; Pulse Ox 98% ; bp 14:14 Body Mass Index 25.92 (68.49 kg, 162.56 cm) hj ED Course: 14:04 Patient arrived in ED. rg4 14:04 Rm Sweet MD is Private Physician. rg4 14:13 Triage completed. hj 14:14 Arm band placed on left wrist. hj 14:14 Patient has correct armband on for positive identification. Placed in gown. Bed in low hj position. Call light in reach. Side rails up X2. 14:54 Issac Quesada MD is Attending Physician. oswaldo 15:23 XRAY Hand RIGHT 3 View In Process Unspecified. EDMS 16:26 Peace Dillard, RN is Primary Nurse. dm5 16:46 Primary Nurse role handed off by Peace Dillard, RN sg 16:46 Lewis Juarez, ROMY is Primary Nurse. sg 16:55 Missed attempt(s): 20 gauge in left antecubital area. Bleeding controlled, band aid dm5 applied, catheter tip intact. 17:12 Inserted saline lock: 20 gauge in left antecubital area, using aseptic technique. Blood iw collected. 17:12 Initial lab(s) drawn, by me, sent to lab. First set of blood cultures drawn by me. iw 18:13 Rm Sweet MD is Hospitalizing Provider. oswaldo 18:37 Patient moved to [facility] via wheelchair. ka 19:09 MRI completed. Patient tolerated well. Patient moved back from [facility]. ka 19:12 Primary Nurse role handed off by Lewis Juarez RN bp 19:12 Duncan Gooden, ROMY is Primary Nurse. bp 21:16 No provider procedures requiring assistance completed. Patient admitted, IV remains in bp place. Administered Medications: 18:34 Drug: TORadol 30 mg Route: IVP; Site: left antecubital; iw 19:31 Follow up: Response: No adverse reaction bp 18:35 Drug: NS 0.9% 500 ml Route: IV; Rate: bolus; Site: left antecubital; iw 21:18 Follow up: IV Status: Completed infusion; IV Intake: 500ml bp 18:35 Not Given (Patient Refused): fentaNYL (PF) 25 mcg IVP once iw 18:35 Not Given (Patient Refused): fentaNYL (PF) 25 mcg IVP once iw 18:35 Not Given (Patient Refused): Zofran 4 mg IVP once; over 2 minutes iw 19:39 Drug: Cefepime 1 grams Route: IVPB; Rate: 200 ml/hr; Infused Over: 30 mins; Site: left bp antecubital; 21:18 Follow up: IV Status: Completed infusion; IV Intake: 100ml bp Intake: 21:18 IV: 100ml; Total: 100ml. bp 21:18 IV: 500ml; Total: 600ml. bp Outcome: 18:16 Decision to Hospitalize by Provider. oswaldo 21:16 Admitted to Tele accompanied by tech, family with patient, via wheelchair, room 416, bp with chart, Report called to SARIKA STANTON 21:16 Condition: stable 21:16 Instructed on the need for admit. 21:19 Patient left the ED. bp Signatures: Dispatcher [employer] Peace Haskins RN RN dm5 Lewis Juarez, Issac Casey RN, MD MD cha Williams, Irene, RN RN iw Joaquin, Henry, RN RN Leticia Oneill Taylor, RN RN tl2 Lauren Vilchis rg4 Lele Cardosoah Duncan Escobar RN RN bp Corrections: (The following items were deleted from the chart) 14:15 14:13 Home Meds: Omeprazole Oral; [facility] 14:17 14:14 68.49 kg; Height 5 ft. 4 in.; BMI: 25.9; Pain 11/24; [facility] 16:31 14:09 Acuity: MAINE 4 [facility] 21:17 21:16 Admitted to Tele accompanied by tech, family with patient, via wheelchair, room bp 416, with chart, bp
--- NOTE | 2017-09-13 18:17 | EDPHYS ---
Physician Documentation [facility] Name: Leonila Cabrera Age: 62 yrs Sex: Female : 1955 Arrival Date: 09/13/2017 Time: 14:[address] Private MD: Rm Sweet ED Physician Issac Quesada HPI: 09/13 16:16 This 62 yrs old Female presents to ER via Ambulatory with complaints of Hand oswaldo Pain. 16:16 The patient or guardian reports decreased range of motion, pain, swelling, tenderness. oswaldo The complaints affect the right hand diffusely. Context: The problem was sustained at an unknown location. Onset: The symptoms/episode began/occurred 3 day(s) ago. Modifying factors: The symptoms are alleviated by holding still, the symptoms are aggravated by movement, dependent position. Associated signs and symptoms: The patient has no apparent associated signs or symptoms. Severity of symptoms: At their worst the symptoms were severe, in the emergency department the symptoms are unchanged. The patient has not experienced similar symptoms in the past. Historical: - Allergies: 14:13 PENICILLINS; hj - Home Meds: 14:13 Eliquis oral oral [Active]; pantoprazole oral oral [Active]; Metoprolol Tartrate Oral hj [Active]; - PMHx: 14:13 GERD; hj - PSHx: 14:13 None; hj - Immunization history:: Adult Immunizations up to date. - Social history:: Smoking status: Patient uses tobacco products. - Ebola Screening: : Patient negative for fever greater than or equal to 101.5 degrees Fahrenheit, and additional compatible Ebola Virus Disease symptoms Patient denies exposure to infectious person Patient denies travel to an Ebola-affected area in the 21 days before illness onset. - Family history:: not pertinent. ROS: 16:16 Constitutional: Negative for fever, chills, and weight loss, Eyes: Negative for injury, oswaldo pain, redness, and discharge, ENT: Negative for injury, pain, and discharge, Neck: Negative for injury, pain, and swelling, Cardiovascular: Negative for chest pain, palpitations, and edema, Respiratory: Negative for shortness of breath, cough, wheezing, and pleuritic chest pain, Abdomen/GI: Negative for abdominal pain, nausea, vomiting, diarrhea, and constipation, Back: Negative for injury and pain, : Negative for injury, bleeding, discharge, and swelling, Skin: Negative for injury, rash, and discoloration, Neuro: Negative for headache, weakness, numbness, tingling, and seizure, Psych: Negative for depression, anxiety, suicide ideation, homicidal ideation, and hallucinations, Allergy/Immunology: Negative for hives, rash, and allergies, Endocrine: Negative for neck swelling, polydipsia, polyuria, polyphagia, and marked weight changes, Hematologic/Lymphatic: Negative for swollen nodes, abnormal bleeding, and unusual bruising. 16:16 MS/extremity: Positive for decreased range of motion, pain, swelling, tenderness, of the dorsum of right hand and dorsal aspect of right wrist. Exam: 16:16 Constitutional: This is a well developed, well nourished patient who is awake, alert, oswaldo and in no acute distress. Head/Face: Normocephalic, atraumatic. Eyes: Pupils equal round and reactive to light, extra-ocular motions intact. Lids and lashes normal. Conjunctiva and sclera are non-icteric and not injected. Cornea within normal limits. Periorbital areas with no swelling, redness, or edema. ENT: Nares patent. No nasal discharge, no septal abnormalities noted. Tympanic membranes are normal and external auditory canals are clear. Oropharynx with no redness, swelling, or masses, exudates, or evidence of obstruction, uvula midline. Mucous membranes moist. Neck: Trachea midline, no thyromegaly or masses palpated, and no cervical lymphadenopathy. Supple, full range of motion without nuchal rigidity, or vertebral point tenderness. No Meningismus. Chest/axilla: Normal chest wall appearance and motion. Nontender with no deformity. No lesions are appreciated. Cardiovascular: Regular rate and rhythm with a normal S1 and S2. No gallops, murmurs, or rubs. Normal PMI, no JVD. No pulse deficits. Respiratory: Lungs have equal breath sounds bilaterally, clear to auscultation and percussion. No rales, rhonchi or wheezes noted. No increased work of breathing, no retractions or nasal flaring. Abdomen/GI: Soft, non-tender, with normal bowel sounds. No distension or tympany. No guarding or rebound. No evidence of tenderness throughout. Back: No spinal tenderness. No costovertebral tenderness. Full range of motion. Female : Normal external genitalia. Skin: Warm, dry with normal turgor. Normal color with no rashes, no lesions, and no evidence of cellulitis. Neuro: Awake and alert, GCS 15, oriented to person, place, time, and situation. Cranial nerves II-XII grossly intact. Motor strength 5/5 in all extremities. Sensory grossly intact. Cerebellar exam normal. Normal gait. Psych: Awake, alert, with orientation to person, place and time. Behavior, mood, and affect are within normal limits. 16:16 Musculoskeletal/extremity: ROM: limited active range of motion due to pain, limited passive range of motion due to pain, Circulation is intact in all extremities. Compartment Syndrome exam of affected extremity: is normal. no palor, no weak pulses, severe pain, sensation decreased. Vital Signs: 14:14 BP 120 / 79; Pulse 65; Resp 18; Temp 97.5(O); Pulse Ox 97% on R/A; Weight 68.49 kg; hj Height 5 ft. 4 in. (162.56 cm); Pain 10/10; 19:40 BP 104 / 61; Pulse 72; Resp 16; Pulse Ox 100% ; bp 20:18 BP 108 / 73; Pulse 64; Resp 16; Pulse Ox 95% on R/A; mt 20:34 BP 117 / 65; Pulse 66; Resp 18; Pulse Ox 96% on R/A; tl2 21:15 BP 107 / 76; Pulse 67; Resp 14; Pulse Ox 98% ; bp 14:14 Body Mass Index 25.92 (68.49 kg, 162.56 cm) MDM: 14:54 Patient medically screened. [facility] 16:18 Data reviewed: vital signs, EMS record, lab test result(s), radiologic studies, plain oswaldo films. 09/13 16:15 Order name: CBC with Diff [facility] 09/13 16:15 Order name: Comprehensive Metabolic Panel [facility] 09/13 16:15 Order name: Sed Rate [facility] 09/13 16:15 Order name: Blood Culture Adult (2) [facility] 09/13 16:15 Order name: Procalcitonin; Complete Time: 19:35 [facility] 09/13 16:16 Order name: CBC with Automated Diff; Complete Time: 17:46 [facility] 09/13 16:16 Order name: Comprehensive Metabolic Panel; Complete Time: 17:46 [facility] 09/13 16:16 Order name: Sedimentation Rate, Westergren; Complete Time: 17:46 [facility] 09/13 16:16 Order name: Blood Culture [facility] 09/13 16:26 Order name: Uric Acid; Complete Time: 18:08 bd 09/13 17:47 Order name: Urine Dipstick--Ancillary (enter results); Complete Time: 18:08 bd 09/13 18:24 Order name: Basic Metabolic Panel [facility] 09/13 18:24 Order name: Basic Metabolic Panel [facility] 09/13 18:24 Order name: CBC with Automated Diff [facility] 09/13 14:15 Order name: XRAY Hand RIGHT 3 View; Complete Time: 17:00 hj 09/13 18:13 Order name: Hand Right Wo Cont EDMS 09/13 18:13 Order name: Splint - Wrist; Complete Time: 19:30 oswaldo 09/13 18:24 Order name: CONS Pharmacy Consult EDMS 09/13 18:24 Order name: CONS Physician Consult [facility] 09/13 18:24 Order name: NPO [facility] 09/13 18:24 Order name: CBC with Automated Diff EDMS Administered Medications: 18:34 Drug: TORadol 30 mg Route: IVP; Site: left antecubital; iw 19:31 Follow up: Response: No adverse reaction bp 18:35 Drug: NS 0.9% 500 ml Route: IV; Rate: bolus; Site: left antecubital; iw 21:18 Follow up: IV Status: Completed infusion; IV Intake: 500ml bp 18:35 Not Given (Patient Refused): fentaNYL (PF) 25 mcg IVP once iw 18:35 Not Given (Patient Refused): fentaNYL (PF) 25 mcg IVP once iw 18:35 Not Given (Patient Refused): Zofran 4 mg IVP once; over 2 minutes iw 19:39 Drug: Cefepime 1 grams Route: IVPB; Rate: 200 ml/hr; Infused Over: 30 mins; Site: left bp antecubital; 21:18 Follow up: IV Status: Completed infusion; IV Intake: 100ml bp Disposition: 09/13/17 18:16 Hospitalization ordered by Rm Sweet for Inpatient Admission. Preliminary diagnosis are Pain in right wrist, Pain in right hand, Cellulitis and acute lymphangitis of other parts of limb. - Bed requested for Telemetry/MedSurg (Inpatient). - Status is Inpatient Admission. bp - Condition is Stable. - Problem is new. - Symptoms have improved. UTI on Admission? No Signatures: Dispatcher [employer] EDMS Jen Ambrose rg2 Issac Quesada MD MD cha Williams, Irene, RN RN Deep Cobian, RN RN Duncan Gooden RN RN bp Corrections: (The following items were deleted from the chart) 14:15 14:13 Home Meds: Omeprazole Oral; [facility] 18:16 18:16 Hospitalization Ordered by Rm Sweet MD for Inpatient Admission. Preliminary oswaldo diagnosis is Pain in right wrist; Pain in right hand. Bed requested for Telemetry/MedSurg (Inpatient). Status is Inpatient Admission. Condition is Stable. Problem is new. Symptoms have improved. UTI on Admission? No. oswaldo 19:52 18:16 09/13/2017 18:16 Hospitalization Ordered by Rm Sweet MD for Inpatient rg2 Admission. Preliminary diagnosis is Pain in right wrist; Pain in right hand; Cellulitis and acute lymphangitis of other parts of limb. Bed requested for Telemetry/MedSurg (Inpatient). Status is Inpatient Admission. Condition is Stable. Problem is new. Symptoms have improved. UTI on Admission? No. oswaldo 21:19 19:52 09/13/2017 18:16 Hospitalization Ordered by Rm Sweet MD for Inpatient bp Admission. Preliminary diagnosis is Pain in right wrist; Pain in right hand; Cellulitis and acute lymphangitis of other parts of limb. Bed requested for Telemetry/MedSurg (Inpatient). Status is Inpatient Admission. Condition is Stable. Problem is new. Symptoms have improved. UTI on Admission? No. rg2
[2017-09-13] MEDS ORDERED: ONDANSETRON 4 MG/2 ML VIAL IV PRN (18:20)
[2017-09-13] MEDS ORDERED: MORPHINE 4 MG/ML SYR IV PRN (18:20)
[2017-09-13] MEDS ORDERED: VANCOMYCIN 0 GM/0 ML BAG ONE (18:24)
[2017-09-13] MEDS ORDERED: CEFEPIME 0 GM/0 ML BAG IV ONE ×2 (18:24→19:38)
[2017-09-13] MEDS ORDERED: VANCOMYCIN/NS 1 gm 1 GM/250 ML BAG IVPB SCH (18:30)
[2017-09-13] MEDS ORDERED: VANCOMYCIN 1 GM/250 ML BAG ONE (19:38)
--- NOTE | 2017-09-13 19:57 | RAD REPORT ---
EXAM DESCRIPTION: MRI - Hand Right Wo Cont - 09/13/2017 7:18 pm CLINICAL HISTORY: swelling Pain COMPARISON: Hand Right 3 View dated 09/13/2017 FINDINGS: Significant soft tissue edema and fluid is present along the dorsum of the hand. Mild flui d is seen along the extensor tendon sheaths of the hand. Carpal tunnel has a normal appearance. Mild marrow edema is seen involving the base of the third metacarpal. Subtle bony fragmentation may b e present along the dorsal aspect of this region. IMPRESSION: Significant soft tissue swelling and edema along the dorsum of the hand could be related to cellulitis and/or fasciitis. Fluid in the extensor tendon sheaths of the hand is most compatible with tenosynovitis. Suggest clinical correlation for the possibility of compartment syndrome. Mild nonspecific marrow edema involving the base of the third metacarpal with evidence of bony fragme ntation involving this region. Avulsion fracture would be a possibility in the setting of prior traum a/injury. Alternatively, this finding secondary to reactive marrow changes or early osteomyelitis.
[2017-09-13] MEDS ORDERED: CEFEPIME 1 GM/VIAL IV SCH (21:00)
[2017-09-13] MEDS ORDERED: VANCOMYCIN 1.25 GM in NA CHLORIDE 0.9% 250 ML IVPB SCH (21:00)
[2017-09-13] MEDS ORDERED: CEFEPIME/SWI 1gm 1 GM/10 ML SYR IVP SCH (21:00)
[2017-09-13] MEDS: NA CHLORIDE 0.9% 1,000 ML IV SCH (22:19)
[2017-09-13] MEDS: ACETAMINOPHEN 500 MG TAB PO PRN (22:50)
[2017-09-13] MEDS ORDERED: CEFEPIME 1 GM/100 ML BAG IV ONE (23:46)
[2017-09-14] MEDS: NA CHLORIDE 0.9% 1,000 ML IV SCH ×2 (05:11→15:31)
[2017-09-14 06:00] LABS: Absolute Monocytes 0.6 K/uL (0.1-1.3); Absolute Neutrophil 4.1 K/uL (1.8-8.0); Basophils % 0.9 % (0-1.3); Hematocrit 34.5 % (36.0-45.0); MCH 30.9 pg (27.0-35.0); MCV 90.8 fL (80-100); MPV 8.9 fL (7.6-11.3); Monocytes % 8.4 % (3.3-12.3)
[2017-09-14 06:01] LABS: BUN Blood Urea Nitrogen 12 mg/dL (7-18); Bicarbonate 27 mmol/L (21-32); Glucose Level 92 mg/dL (74-106); Potassium 3.6 mmol/L (3.5-5.1); Sodium Level 143 mmol/L (136-145)
[2017-09-14] MEDS ORDERED: CEFEPIME/SWI 1gm 1 GM/10 ML SYR IVP SCH (08:00)
--- NOTE | 2017-09-14 08:58 | P.HP ---
Certification for Inpatient Patient admitted to: Observation With expected LOS: <2 Midnights Patient will require the following post-hospital care: None Practitioner: I am a practitioner with admitting privileges, knowledge of patient current condition, hospital course, and medical plan of care. Services: Services provided to patient in accordance with Admission requirements found in Title 42 Section 412.3 of the Code of Federal Regulations Patient History Date of Service: 09/14/17 Primary Care Provider: Jamila Hillman Reason for admission: cellulitis, right hand History of Present Illness: Patient recently established with Harsha Hillman. The patient comes in with 3 days of right hand pain and swelling. she denies any injuries, cuts or bug bites. Had tenderness to touch on physical exam. Mildly elevated white count. Negative xray and ct scan of the hand in question. She has a history of atrial fib. Allergies Penicillins Allergy (Unknown, Verified 08/04/17 01:00) Unknown Home Medications: Acetaminophen/Diphenhydramine [Tylenol Pm Ex-Strength Caplet] 1 tab PO Q6HP PRN 09/14/17 Apixaban [Eliquis] 1 tab PO DAILY 09/14/17 Metoprolol Tartrate 1 tab PO DAILY 09/14/17 Pantoprazole Sodium 1 tab DAILY 09/14/17 - Past Medical/Surgical History Has patient received pneumonia vaccine in the past: No Diabetic: No -: GERD -: pneumonia -: Afib -: foot surgery 2006 -: tonsillectomy - Family History Father -: Heart disease Notes: alzheimers Mother -: Diabetes - Social History Smoking Status: Former smoker Alcohol use: Yes CD- Drugs: No Caffeine use: Yes Place of Residence: Home Review of Systems 10-point ROS is otherwise unremarkable Musculoskeletal: Hand Pain (right side) Physical Examination - Vital Signs Temperature: 97.6 F Blood Pressure: 107/59 Pulse: 80 Respirations: 18 Pulse Ox (%): 97 - Physical Exam General: Alert, In no apparent distress HEENT: Atraumatic, PERRLA, Mucous membr. moist/pink, EOMI, Sclerae nonicteric Neck: Supple, 2+ carotid pulse no bruit, No LAD, Without JVD or thyroid abnormality Respiratory: Clear to auscultation bilaterally, Normal air movement Cardiovascular: Regular rate/rhythm, Normal S1 S2 Gastrointestinal: Normal bowel sounds, No tenderness Musculoskeletal: Tenderness (right hand, Mild swelling), Warmth (right hand) Integumentary: No rashes Neurological: Normal gait, Normal speech, Normal strength at 5/5 x4 extr, Normal tone, Normal affect Lymphatics: No axilla or inguinal lymphadenopathy - Studies Laboratory Data (last 24 hrs) 09/13/17 17:05: Uric Acid 3.3 09/13/17 17:05: Sodium 141, Potassium 3.9, BUN 13, Creatinine 0.70, Glucose 91, Total Bilirubin 0.4, AST 13 L, ALT 15, Alkaline Phosphatase 56 09/13/17 17:05: WBC 12.7 H, Hgb 13.1, Hct 39.7, Plt Count 300 Assessment and Plan - Problems (Diagnosis) (1) Cellulitis of right hand Current Visit: Yes Status: Acute Plan: Patient is doing much better on fluids and antibiotics. If no objections with Dr. García we can discharge the patient home. (2) Atrial fibrillation Current Visit: Yes Status: Acute Plan: will continue metoprolol and eliquis, she is currently rate controlled. Qualifiers: Atrial fibrillation type: chronic Qualified Code(s): I48.2 - Chronic atrial fibrillation Discharge Plan: Home Plan to discharge in: 24 Hours - Advance Directives Does patient have a Living Will: No Does patient have a Durable POA for Healthcare: No - Code Status/Comfort Care Code Status Assessed: No Code Status: Full Code Physician Review: Patient Assessed, Agree with Above Assessment and Plan Critical Care: No Time Spent Managing Pts Care (In Minutes): 45
[2017-09-14] MEDS: ACETAMINOPHEN 325 MG TABLET PO SCH ×3 (09:00→21:27)
[2017-09-14] MEDS: CEFEPIME/SWI 1gm 1 GM/10 ML SYR IVP SCH ×2 (09:15→21:27)
--- NOTE | 2017-09-14 12:07 | P.DS ---
Admission Date: 09/13/17 Discharge Date: 09/14/17 Primary Care Provider: Jamila Hillman Disposition: ROUTINE DISCHARGE Discharge Condition: GOOD Reason for Admission: cellulitis, right hand - Problems (1) Cellulitis of right hand Current Visit: Yes Status: Acute (2) Atrial fibrillation Current Visit: Yes Status: Acute Qualifiers: Atrial fibrillation type: chronic Qualified Code(s): I48.2 - Chronic atrial fibrillation Brief History of Present Illness: Patient recently established with Harsha Hillman. The patient comes in with 3 days of right hand pain and swelling. she denies any injuries, cuts or bug bites. Had tenderness to touch on physical exam. Mildly elevated white count. Negative xray and ct scan of the hand in question. She has a history of atrial fib. Hospital Course: Patient improved with fluids and antibiotics. She had a normal white count. Negative procalcitonin. She had a negative MRI. Will discharge her on bactrim ds. Follow with Harsha Hillman Vital Signs/Physical Exam: Temp Pulse Resp BP Pulse Ox 97.6 F 80 18 107/59 L 97 09/14/17 09:10 09/14/17 09:10 09/14/17 09:10 09/14/17 09:10 09/14/17 09:10 General: Alert, In no apparent distress HEENT: Atraumatic, PERRLA, EOMI Neck: Supple, JVD not distended Respiratory: Clear to auscultation bilaterally, Normal air movement Cardiovascular: Regular rate/rhythm, Normal S1 S2 Gastrointestinal: Normal bowel sounds, No tenderness Musculoskeletal: No tenderness Integumentary: No rashes Neurological: Normal speech, Normal tone, Normal affect Lymphatics: No axilla or inguinal lymphadenopathy Laboratory Data at Discharge: WBC 7.1 K/uL (4.3-10.9) D 09/14/17 05:17 Hgb 11.7 g/dL (12.0-15.0) L 09/14/17 05:17 Hct 34.5 % (36.0-45.0) L 09/14/17 05:17 Plt Count 279 K/uL (152-406) 09/14/17 05:17 Sodium 143 mmol/L (136-145) 09/14/17 05:17 Potassium 3.6 mmol/L (3.5-5.1) 09/14/17 05:17 BUN 12 mg/dL (7-18) 09/14/17 05:17 Creatinine 0.60 mg/dL (0.55-1.3) 09/14/17 05:17 Glucose 92 mg/dL (74-106) 09/14/17 05:17 Uric Acid 3.3 mg/dL (2.6-6.0) 09/13/17 17:05 Total Bilirubin 0.4 mg/dL (0.2-1.0) 09/13/17 17:05 AST 13 U/L (15-37) L 09/13/17 17:05 ALT 15 U/L (12-78) 09/13/17 17:05 Alkaline Phosphatase 56 U/L (45-117) 09/13/17 17:05 Home Medications: Acetaminophen/Diphenhydramine [Tylenol Pm Ex-Strength Caplet] 1 tab PO Q6HP PRN 09/14/17 Apixaban [Eliquis] 1 tab PO DAILY 09/14/17 Diclofenac Sodium 50 mg PO BID 30 Days #60 tablet. 09/14/17 Metoprolol Tartrate 1 tab PO DAILY 09/14/17 Pantoprazole Sodium 1 tab DAILY 09/14/17 Smz./Tmp. [Bactrim Ds 800 MG/160 MG] 1 tab PO BID 10 Days #20 tab 09/14/17 New Medications: Diclofenac Sodium 50 mg PO BID 30 Days #60 tablet. Smz./Tmp. [Bactrim Ds 800 MG/160 MG] 1 tab PO BID 10 Days #20 tab Followup: aJmila Hillman PERSONNEL ADVISER [[employer]IED HE[employer] PROFESSIONAL] - 1-2 Weeks Time spent managing pt's care (in minutes): 35
[2017-09-14] MEDS ORDERED: NA CHLORIDE 0.9% 3,000 ML ONE (12:18)
[2017-09-14] MEDS ORDERED: FENTANYL/NS PCA 500 MCG/50 ML SYR IV ONE (12:18)
[2017-09-14] MEDS ORDERED: DOCUSATE NA/SENNA CONC 1 TAB PO PRN (12:35)
[2017-09-14] MEDS: METOPROLOL TAR 25 MG TAB PO SCH (13:59)
[2017-09-14] MEDS: ACETAMINOPHEN 500 MG TAB PO PRN (14:06)
[2017-09-14] MEDS: VANCOMYCIN 1.25 GM in NA CHLORIDE 0.9% 250 ML IVPB SCH (15:31)
[2017-09-14] MEDS: APIXABAN 5 MG TABLET PO SCH (21:27)
[2017-09-15] MEDS: NA CHLORIDE 0.9% 1,000 ML IV SCH ×2 (01:00→10:13)
[2017-09-15] MEDS: METOPROLOL TAR 25 MG TAB PO SCH (06:00)
[2017-09-15] MEDS ORDERED: PANTOPRAZOLE 40MG TABLET PO SCH (06:30)
[2017-09-15] MEDS: CEFEPIME/SWI 1gm 1 GM/10 ML SYR IVP SCH (08:50)
[2017-09-15] MEDS: ACETAMINOPHEN 325 MG TABLET PO SCH ×2 (08:50→14:00)
[2017-09-15] MEDS: APIXABAN 5 MG TABLET PO SCH (08:50)
[2017-09-15] MEDS: VANCOMYCIN 1.25 GM in NA CHLORIDE 0.9% 250 ML IVPB SCH (08:50)
--- NOTE | 2017-09-15 09:14 | P.DS ---
Admission Date: 09/13/17 Discharge Date: 09/15/17 Primary Care Provider: Jamila Hillman Disposition: ROUTINE DISCHARGE Discharge Condition: GOOD Reason for Admission: cellulitis, right hand - Problems (1) Cellulitis of right hand Onset Date: 09/14/17 Current Visit: Yes Status: Acute (2) Atrial fibrillation Onset Date: 09/14/17 Current Visit: Yes Status: Acute Qualifiers: Atrial fibrillation type: chronic Qualified Code(s): I48.2 - Chronic atrial fibrillation Brief History of Present Illness: Patient recently established with Harsha Hillman. The patient comes in with 3 days of right hand pain and swelling. she denies any injuries, cuts or bug bites. Had tenderness to touch on physical exam. Mildly elevated white count. Negative xray and ct scan of the hand in question. She has a history of atrial fib. Hospital Course: Patient improved with fluids and antibiotics. She had a normal white count. Negative procalcitonin. She had a negative MRI. Will discharge her on bactrim ds. Follow with Harsha Hillman Patient was seen by Dr. Morin. Told them another day of antibiotics would be a good idea. They then refused to go home. The patient is looking better this morning. Her is in the room. He is a bit overzealous. Wanted to know if the patient's sepsis a month ago is the cause of this infection. It is unlikely as she has a functioning immune system. Have spent 20 min answering questions. He was upset I had not reviewed Her records from [facility]. However we left it semicordial Vital Signs/Physical Exam: Temp Pulse Resp BP Pulse Ox 98.8 F 69 18 133/82 98 09/15/17 08:00 09/15/17 08:00 09/15/17 08:00 09/15/17 08:00 09/15/17 08:00 General: Alert, In no apparent distress HEENT: Atraumatic, PERRLA, EOMI Neck: Supple, JVD not distended Respiratory: Clear to auscultation bilaterally, Normal air movement Cardiovascular: Regular rate/rhythm, Normal S1 S2 Gastrointestinal: Normal bowel sounds, No tenderness Musculoskeletal: No tenderness Integumentary: No rashes Neurological: Normal speech, Normal tone, Normal affect Lymphatics: No axilla or inguinal lymphadenopathy Laboratory Data at Discharge: WBC 7.1 K/uL (4.3-10.9) D 09/14/17 05:17 Hgb 11.7 g/dL (12.0-15.0) L 09/14/17 05:17 Hct 34.5 % (36.0-45.0) L 09/14/17 05:17 Plt Count 279 K/uL (152-406) 09/14/17 05:17 Sodium 143 mmol/L (136-145) 09/14/17 05:17 Potassium 3.6 mmol/L (3.5-5.1) 09/14/17 05:17 BUN 12 mg/dL (7-18) 09/14/17 05:17 Creatinine 0.60 mg/dL (0.55-1.3) 09/14/17 05:17 Glucose 92 mg/dL (74-106) 09/14/17 05:17 Uric Acid 3.3 mg/dL (2.6-6.0) 09/13/17 17:05 Total Bilirubin 0.4 mg/dL (0.2-1.0) 09/13/17 17:05 AST 13 U/L (15-37) L 09/13/17 17:05 ALT 15 U/L (12-78) 09/13/17 17:05 Alkaline Phosphatase 56 U/L (45-117) 09/13/17 17:05 Home Medications: Acetaminophen/Diphenhydramine [Tylenol Pm Ex-Strength Caplet] 1 tab PO Q6HP PRN 09/14/17 Apixaban [Eliquis] 1 tab PO DAILY 09/14/17 Metoprolol Tartrate 1 tab PO DAILY 09/14/17 Pantoprazole Sodium 1 tab DAILY 09/14/17 RX: Diclofenac Sodium 50 mg PO BID 30 Days #60 tablet. 09/14/17 Smz./Tmp. [Bactrim Ds 800 MG/160 MG] 1 tab PO BID 10 Days #20 tab 09/14/17 New Medications: RX: Diclofenac Sodium 50 mg PO BID 30 Days #60 tablet. Smz./Tmp. [Bactrim Ds 800 MG/160 MG] 1 tab PO BID 10 Days #20 tab Diet: Regular Activity: Ad tj Followup: Jamila Hillman, GUI [[employer] HEALTH PROFESSIONAL] - 1-2 Weeks Time spent managing pt's care (in minutes): 30
== END 2017-09-15 15:31 | disposition home or self-care (01) ==
LOC: ER 14:02 → ERHOLD 18:17 → INTOOBSV 18:17 → 4TH 19:46
PROVIDERS: ADMIT Internal Medicine; ATTEND Internal Medicine
DX: L03.113 Cellulitis of right upper limb (principal); K21.9 Gastro-esophageal reflux disease without esophagitis; I48.2 Chronic atrial fibrillation; Z87.891 Personal history of nicotine dependence; Z79.01 Long term (current) use of anticoagulants; Z88.0 Allergy status to penicillin
CPT/HCPCS: 36415; 80048; 80053; 81003; 84145; 84550; 85025; 85652; 87040; 96361; 96365; 96366; 96375; 99285; G0378; J0692; J2405; J3010; J3370; J7030